=== PATIENT | male | born 1960 | race Caucasian/White ===

== ENCOUNTER 2021-10-25 13:35 | Emergency (ER) | payer OTHER | END 2021-10-25 14:45 | disposition home or self-care (01) | LOC: FER 13:35 | DX: S00.81XA Abrasion of other part of head, initial encounter (principal); I10 Essential (primary) hypertension; E11.9 Type 2 diabetes mellitus without complications; Z28.310 Unvaccinated for COVID-19; Z79.899 Other long term (current) drug therapy; W51.XXXA Accidental striking against or bumped into by another person, initial encounter | CPT/HCPCS: 70450; 72125 ==